=== PATIENT | female | born 1935 | race African-American/Black ===

== ENCOUNTER 2022-06-12 16:12 | Inpatient (IN) ==
[2022-06-12 20:16] LABS: Basophils # 0.1 10*3/uL (0.0-0.2); Basophils % 0.8 % (0.0-0.8); Eosinophils # 0.4 10*3/uL (0.0-0.87); Eosinophils % 4.5 % (0.00-10.9); Hematocrit 37.5 VOL% (35.7-47.0); Hemoglobin 11.9 GM/DL (12.0-16.0); Immature Granulocytes % 0.4 %; Immature Granulocytes Absolute 0.04 #; Lymphocytes # 1.6 10*3/uL (1.4-4.0); Lymphocytes % 16.4 % (21.3-54.2); Mean Corpuscular HGB Conc 31.7 GM/DL (32-36); Mean Corpuscular Volume 96.6 FL (87-102); Mean Platelet Volume 10.2 FL (9.6-12.0); Monocytes # 0.7 10*3/uL (0.11-0.8); Monocytes % 7.1 % (1.7-12.7); Neutrophils % 70.8 % (38.7-73.9); Platelet Count 296 T/CUMM (130-400); Red Blood Count 3.88 MC/CUMM (3.8-5.5); Red Cell Distribution Width 12.2 % (9.3-17.3); White Blood Count 9.8 T/CUMM (4-12)
[2022-06-12] MEDS ORDERED: VANCOMYCIN INJ 1,000 MG in SODIUM CHLORIDE 0.9% 250 ML IV STA ×2 (20:32→20:55)
[2022-06-12 20:35] LABS: Albumin 3.4 G/DL (3.4-5.0); Bilirubin,Total 0.4 MG/DL (0.20-1.00); Calcium 10.2 MG/DL (8.5-10.1); Osmolality,Calculated 277.8 MOS/KG (273-304); Total Protein 9.5 G/DL (6.4-8.2)
[2022-06-12] MEDS ORDERED: ONDANSETRON 4 MG/2 ML VIAL IV PRN (20:52)
[2022-06-12] MEDS ORDERED: DEXTROSE 50% 25 GM/50 ML VIAL IV PRN (20:52)
[2022-06-12] MEDS ORDERED: GLUCAGON 1 MG VIAL IM PRN ×2 (20:52)
[2022-06-12] MEDS ORDERED: SODIUM CHLORIDE 0.9% 1,000 ML IV SCH (21:00)
[2022-06-12] MEDS ORDERED: DEXTROSE 10% 250 ML BAG IV PRN (21:14)
[2022-06-12] MEDS: INSULIN REGULAR 100 UNIT/ML SUBCUT SCH (23:10)
[2022-06-13 05:55] LABS: Basophils # 0.1 10*3/uL (0.0-0.2); Basophils % 0.8 % (0.0-0.8); Eosinophils # 0.4 10*3/uL (0.0-0.87); Eosinophils % 5.6 % (0.00-10.9); Hematocrit 35.6 VOL% (35.7-47.0); Hemoglobin 11.3 GM/DL (12.0-16.0); Immature Granulocytes % 0.3 %; Immature Granulocytes Absolute 0.02 #; Lymphocytes # 1.4 10*3/uL (1.4-4.0); Lymphocytes % 18.4 % (21.3-54.2); Mean Corpuscular HGB Conc 31.7 GM/DL (32-36); Mean Corpuscular Volume 96.7 FL (87-102); Mean Platelet Volume 10.3 FL (9.6-12.0); Monocytes # 0.7 10*3/uL (0.11-0.8); Monocytes % 9.6 % (1.7-12.7); Neutrophils % 65.3 % (38.7-73.9); Platelet Count 329 T/CUMM (130-400); Red Blood Count 3.68 MC/CUMM (3.8-5.5); Red Cell Distribution Width 12.2 % (9.3-17.3); White Blood Count 7.5 T/CUMM (4-12)
[2022-06-13 06:09] LABS: Albumin 2.8 G/DL (3.4-5.0); Bilirubin,Total 0.6 MG/DL (0.20-1.00); Calcium 9.8 MG/DL (8.5-10.1); Osmolality,Calculated 284.1 MOS/KG (273-304); Potassium 3.8 MMOL/L (3.5-5.1); Total Protein 8.3 G/DL (6.4-8.2)
[2022-06-13 07:44] LABS: Total Protein (Chem) 8.5 G/DL (6.4-8.3)
[2022-06-13] MEDS: INSULIN REGULAR 100 UNIT/ML SUBCUT SCH ×4 (08:18→20:23)
[2022-06-13] MEDS: amLODIPine 2.5 MG TABLET PO SCH (08:54)
[2022-06-13] MEDS: PANTOPRAZOLE 40 MG TABLET PO SCH (08:54)
[2022-06-13] MEDS: hydroCHLOROthiazide 25 MG TABLET PO SCH (08:54)
[2022-06-13] MEDS: METOPROLOL SUCCINATE XL 100 MG TABLET PO SCH (08:54)
[2022-06-13] MEDS: lisinopriL 20 MG TABLET PO SCH (08:55)
[2022-06-13 10:06] LABS: Albumin (SPE) 4.2 G/DL (3.2-5.3); Albumin (SPE) Rel % 49.9 %; Alpha 1 (SPE) 0.3 G/DL (0.1-0.4); Alpha 1 (SPE) Rel % 3.5 %; Alpha 2 (SPE) 1.1 G/DL (0.4-1.0); Alpha 2 (SPE) Rel % 12.7 %; Beta (SPE) 0.8 G/DL (0.5-1.1); Beta (SPE) Rel % 9.9 %
[2022-06-13] MEDS ORDERED: LIDOCAINE 2% 5 ML VIAL ONE (13:02)
[2022-06-13] MEDS ORDERED: fentaNYL 100 MCG/2 ML VIAL ONE (13:02)
[2022-06-13] MEDS ORDERED: propofoL 200 MG/20 ML VIAL IV ONE (13:02)
[2022-06-13 13:31] LABS: Folate > 24.00 NG/ML (5.38-24.0); Vitamin B12 > 2000 PG/ML (211-911)
[2022-06-13 13:44] LABS: % Iron Saturation 25.1 % (18-50)
[2022-06-13] MEDS ORDERED: BUPIVACAINE MPF 0.25% 10 ML VIAL ONE (14:10)
[2022-06-13] MEDS ORDERED: SEVOFLURANE 1 UNIT/15 MINUTE INH ONE (14:31)
[2022-06-13] MEDS: SODIUM CHLORIDE 0.9% 1,000 ML IV SCH (15:41)
[2022-06-13] MEDS ORDERED: KETOROLAC 15 MG/1 ML VIAL IV PRN (16:12)
[2022-06-13] MEDS: HYDROmorphone 1 MG/1 ML SYRINGE IV PRN ×2 (16:27→21:36)
[2022-06-13] MEDS ORDERED: diphenhydrAMINE 50 MG/1 ML VIAL IV PRN (16:35)
[2022-06-13] MEDS ORDERED: VANCOMYCIN INJ 1,000 MG in SODIUM CHLORIDE 0.9% 250 ML IV SCH (17:00)
[2022-06-14] MEDS: HYDROmorphone 1 MG/1 ML SYRINGE IV PRN (03:12)
[2022-06-14 04:14] LABS: Basophils # 0.1 10*3/uL (0.0-0.2); Basophils % 0.6 % (0.0-0.8); Eosinophils # 0.3 10*3/uL (0.0-0.87); Eosinophils % 2.6 % (0.00-10.9); Hematocrit 35.8 VOL% (35.7-47.0); Hemoglobin 11.2 GM/DL (12.0-16.0); Immature Granulocytes % 0.5 %; Immature Granulocytes Absolute 0.05 #; Lymphocytes # 0.7 10*3/uL (1.4-4.0); Lymphocytes % 7.3 % (21.3-54.2); Mean Corpuscular HGB Conc 31.3 GM/DL (32-36); Mean Corpuscular Volume 97.5 FL (87-102); Mean Platelet Volume 10.3 FL (9.6-12.0); Monocytes # 0.6 10*3/uL (0.11-0.8); Monocytes % 6.2 % (1.7-12.7); Neutrophils % 82.8 % (38.7-73.9); Platelet Count 287 T/CUMM (130-400); Red Blood Count 3.67 MC/CUMM (3.8-5.5); Red Cell Distribution Width 12.1 % (9.3-17.3); White Blood Count 9.7 T/CUMM (4-12)
[2022-06-14 04:42] LABS: Calcium 9.1 MG/DL (8.5-10.1); Osmolality,Calculated 279.5 MOS/KG (273-304); Potassium 3.8 MMOL/L (3.5-5.1); Risk Ratio 3.07; VLDL Cholesterol 16.2 MG/DL
[2022-06-14] MEDS: INSULIN REGULAR 100 UNIT/ML SUBCUT SCH ×5 (07:12→21:05)
[2022-06-14] MEDS: hydroCHLOROthiazide 25 MG TABLET PO SCH (08:37)
[2022-06-14] MEDS: lisinopriL 20 MG TABLET PO SCH (08:37)
[2022-06-14] MEDS: amLODIPine 2.5 MG TABLET PO SCH (08:37)
[2022-06-14] MEDS: METOPROLOL SUCCINATE XL 100 MG TABLET PO SCH (08:37)
[2022-06-14] MEDS: PANTOPRAZOLE 40 MG TABLET PO SCH (08:37)
[2022-06-14] MEDS: SODIUM HYPOCHLORITE 0.25% IRRIG 473 ML BOTTLE TOP SCH (10:07)
[2022-06-14] MEDS ORDERED: MAGNESIUM SULF RIDER 2 GM/50 ML PREMIX IV ONE (10:30)
[2022-06-14] MEDS: SODIUM CHLORIDE 0.9% 1,000 ML IV SCH (12:00)
[2022-06-14] MEDS: CLINDAMYCIN 300 MG CAPSULE PO SCH (16:43)
[2022-06-14 16:56] LABS: Total Protein 24 Hr Ur Result 19 MG/24HR (0-149.1); Total Volume,Urine 100 ML (400-2000)
[2022-06-15 06:46] LABS: 24 Hr Protein (Bench) 19 MG/24HR (0-149.1)
[2022-06-15] MEDS: INSULIN REGULAR 100 UNIT/ML SUBCUT SCH ×4 (07:34→20:27)
[2022-06-15] MEDS ORDERED: LEVOFLOXACIN 750 MG TABLET PO SCH (08:00)
[2022-06-15] MEDS: glipiZIDE 10 MG TABLET PO SCH (08:01)
[2022-06-15] MEDS: amLODIPine 2.5 MG TABLET PO SCH (08:01)
[2022-06-15] MEDS: CLINDAMYCIN 300 MG CAPSULE PO SCH ×3 (08:02→16:58)
[2022-06-15] MEDS: RIVAROXABAN 20 MG TABLET PO SCH (08:02)
[2022-06-15] MEDS: hydroCHLOROthiazide 25 MG TABLET PO SCH (08:02)
[2022-06-15] MEDS: lisinopriL 20 MG TABLET PO SCH (08:02)
[2022-06-15] MEDS: METOPROLOL SUCCINATE XL 100 MG TABLET PO SCH (08:02)
[2022-06-15] MEDS: PANTOPRAZOLE 40 MG TABLET PO SCH (08:02)
[2022-06-15] MEDS: SODIUM HYPOCHLORITE 0.25% IRRIG 473 ML BOTTLE TOP SCH (08:13)
[2022-06-15] MEDS: CEFUROXIME 500 MG TABLET PO SCH ×2 (09:17→20:27)
[2022-06-15] MEDS: SODIUM CHLORIDE 0.9% 1,000 ML IV SCH (16:23)
[2022-06-16] MEDS: INSULIN REGULAR 100 UNIT/ML SUBCUT SCH ×4 (08:39→22:14)
[2022-06-16] MEDS: CLINDAMYCIN 300 MG CAPSULE PO SCH ×3 (08:54→18:00)
[2022-06-16] MEDS: glipiZIDE 10 MG TABLET PO SCH (08:54)
[2022-06-16] MEDS: PANTOPRAZOLE 40 MG TABLET PO SCH (08:54)
[2022-06-16] MEDS: RIVAROXABAN 20 MG TABLET PO SCH (08:54)
[2022-06-16] MEDS: LEVOFLOXACIN 500 MG TABLET PO SCH (08:54)
[2022-06-16] MEDS: hydroCHLOROthiazide 25 MG TABLET PO SCH (08:54)
[2022-06-16] MEDS: METOPROLOL SUCCINATE XL 100 MG TABLET PO SCH (08:54)
[2022-06-16] MEDS: SODIUM HYPOCHLORITE 0.25% IRRIG 473 ML BOTTLE TOP SCH (08:55)
[2022-06-16] MEDS: lisinopriL 20 MG TABLET PO SCH (08:55)
[2022-06-16] MEDS: amLODIPine 2.5 MG TABLET PO SCH (08:55)
[2022-06-17 06:09] LABS: Basophils % 0.4 % (0.0-0.8); Eosinophils # 0.2 10*3/uL (0.0-0.87); Eosinophils % 2.1 % (0.00-10.9); Hematocrit 33.9 VOL% (35.7-47.0); Hemoglobin 11.1 GM/DL (12.0-16.0); Immature Granulocytes % 0.4 %; Immature Granulocytes Absolute 0.03 #; Lymphocytes # 1.1 10*3/uL (1.4-4.0); Lymphocytes % 12.5 % (21.3-54.2); Mean Corpuscular HGB Conc 32.7 GM/DL (32-36); Mean Corpuscular Volume 93.9 FL (87-102); Mean Platelet Volume 10.4 FL (9.6-12.0); Monocytes # 0.8 10*3/uL (0.11-0.8); Monocytes % 9.1 % (1.7-12.7); Neutrophils % 75.5 % (38.7-73.9); Platelet Count 269 T/CUMM (130-400); Red Blood Count 3.61 MC/CUMM (3.8-5.5); Red Cell Distribution Width 12.3 % (9.3-17.3); White Blood Count 8.5 T/CUMM (4-12)
[2022-06-17 06:19] LABS: Calcium 9.6 MG/DL (8.5-10.1); Osmolality,Calculated 271.8 MOS/KG (273-304); Potassium 3.3 MMOL/L (3.5-5.1)
[2022-06-17] MEDS: INSULIN REGULAR 100 UNIT/ML SUBCUT SCH ×3 (07:22→16:51)
[2022-06-17] MEDS: lisinopriL 20 MG TABLET PO SCH (08:28)
[2022-06-17] MEDS: glipiZIDE 10 MG TABLET PO SCH (08:28)
[2022-06-17] MEDS: hydroCHLOROthiazide 25 MG TABLET PO SCH (08:28)
[2022-06-17] MEDS: PANTOPRAZOLE 40 MG TABLET PO SCH (08:28)
[2022-06-17] MEDS: LEVOFLOXACIN 500 MG TABLET PO SCH (08:28)
[2022-06-17] MEDS: CLINDAMYCIN 300 MG CAPSULE PO SCH ×3 (08:29→17:20)
[2022-06-17] MEDS: SODIUM HYPOCHLORITE 0.25% IRRIG 473 ML BOTTLE TOP SCH (08:29)
[2022-06-17] MEDS: METOPROLOL SUCCINATE XL 100 MG TABLET PO SCH (08:29)
[2022-06-17] MEDS: RIVAROXABAN 20 MG TABLET PO SCH (08:29)
[2022-06-17] MEDS: amLODIPine 2.5 MG TABLET PO SCH (08:30)
[2022-06-17] MEDS ORDERED: POTASSIUM CHLORIDE 20 MEQ TABLET PO ONE (10:37)
[2022-06-17] MEDS: ACETAMINOPHEN 325 MG TABLET PO PRN (17:21)
[2022-06-18] MEDS: INSULIN REGULAR 100 UNIT/ML SUBCUT SCH ×5 (00:43→20:42)
[2022-06-18] MEDS: RIVAROXABAN 20 MG TABLET PO SCH (09:30)
[2022-06-18] MEDS: CLINDAMYCIN 300 MG CAPSULE PO SCH ×3 (09:30→17:36)
[2022-06-18] MEDS: glipiZIDE 10 MG TABLET PO SCH (09:30)
[2022-06-18] MEDS: LEVOFLOXACIN 500 MG TABLET PO SCH (09:30)
[2022-06-18] MEDS: SODIUM HYPOCHLORITE 0.25% IRRIG 473 ML BOTTLE TOP SCH (09:53)
[2022-06-18] MEDS: PANTOPRAZOLE 40 MG TABLET PO SCH (09:53)
[2022-06-18] MEDS: amLODIPine 2.5 MG TABLET PO SCH (09:53)
[2022-06-18] MEDS: METOPROLOL SUCCINATE XL 100 MG TABLET PO SCH (09:53)
[2022-06-18] MEDS: lisinopriL 20 MG TABLET PO SCH (09:53)
[2022-06-18] MEDS: hydroCHLOROthiazide 25 MG TABLET PO SCH (09:53)
[2022-06-19 06:16] LABS: Basophils # 0.1 10*3/uL (0.0-0.2); Basophils % 0.6 % (0.0-0.8); Eosinophils # 0.3 10*3/uL (0.0-0.87); Eosinophils % 3.2 % (0.00-10.9); Hematocrit 36.6 VOL% (35.7-47.0); Hemoglobin 11.9 GM/DL (12.0-16.0); Immature Granulocytes % 0.4 %; Immature Granulocytes Absolute 0.04 #; Lymphocytes # 1.5 10*3/uL (1.4-4.0); Mean Corpuscular HGB Conc 32.5 GM/DL (32-36); Mean Corpuscular Volume 93.1 FL (87-102); Mean Platelet Volume 10.7 FL (9.6-12.0); Monocytes # 0.9 10*3/uL (0.11-0.8); Monocytes % 8.9 % (1.7-12.7); Neutrophils % 71.9 % (38.7-73.9); Platelet Count 307 T/CUMM (130-400); Red Blood Count 3.93 MC/CUMM (3.8-5.5); Red Cell Distribution Width 12.6 % (9.3-17.3); White Blood Count 9.8 T/CUMM (4-12)
[2022-06-19 06:38] LABS: Calcium 9.5 MG/DL (8.5-10.1); Osmolality,Calculated 269.2 MOS/KG (273-304)
[2022-06-19] MEDS: INSULIN REGULAR 100 UNIT/ML SUBCUT SCH ×4 (07:17→21:13)
[2022-06-19] MEDS: hydroCHLOROthiazide 25 MG TABLET PO SCH (08:15)
[2022-06-19] MEDS: glipiZIDE 10 MG TABLET PO SCH (08:15)
[2022-06-19] MEDS: amLODIPine 2.5 MG TABLET PO SCH (08:15)
[2022-06-19] MEDS: lisinopriL 20 MG TABLET PO SCH (08:15)
[2022-06-19] MEDS: METOPROLOL SUCCINATE XL 100 MG TABLET PO SCH (08:15)
[2022-06-19] MEDS: CLINDAMYCIN 300 MG CAPSULE PO SCH (08:15)
[2022-06-19] MEDS: LEVOFLOXACIN 500 MG TABLET PO SCH (08:16)
[2022-06-19] MEDS: PANTOPRAZOLE 40 MG TABLET PO SCH (08:16)
[2022-06-19] MEDS: ACETAMINOPHEN 325 MG TABLET PO PRN ×2 (08:16→20:07)
[2022-06-19] MEDS: SODIUM HYPOCHLORITE 0.25% IRRIG 473 ML BOTTLE TOP SCH (08:18)
[2022-06-19] MEDS: RIVAROXABAN 20 MG TABLET PO SCH (08:20)
[2022-06-19] MEDS ORDERED: diphenhydrAMINE CAP 25 MG CAPSULE PO ONE (09:58)
[2022-06-19] MEDS ORDERED: SODIUM CHLORIDE 0.45% 1,000 ML IV SCH (10:00)
[2022-06-19] MEDS ORDERED: HEPARIN/NACL 0.9% 2 UNITS/ML 3,000 UNIT/1,500 ML BAG IV ONE (10:42)
[2022-06-19] MEDS ORDERED: ASPIRIN EC 81 MG TABLET PO ONE (10:45)
[2022-06-19] MEDS ORDERED: fentaNYL 100 MCG/2 ML VIAL ONE (11:30)
[2022-06-19] MEDS ORDERED: MIDAZOLAM 2 MG/2 ML VIAL ONE (11:30)
[2022-06-19] MEDS ORDERED: HEPARIN 5,000 UNIT/1 ML VIAL ONE (12:08)
[2022-06-19] MEDS ORDERED: hydrALAZINE 20 MG/1 ML VIAL ONE (12:31)
[2022-06-19] MEDS ORDERED: NITROGLYCERIN DRIP 50 MG/250 ML BOTTLE IV ONE (13:28)
[2022-06-20 06:25] LABS: Basophils # 0.1 10*3/uL (0.0-0.2); Basophils % 0.6 % (0.0-0.8); Eosinophils # 0.2 10*3/uL (0.0-0.87); Eosinophils % 1.3 % (0.00-10.9); Hematocrit 33.8 VOL% (35.7-47.0); Hemoglobin 10.9 GM/DL (12.0-16.0); Immature Granulocytes % 1.6 %; Immature Granulocytes Absolute 0.18 #; Lymphocytes # 1.2 10*3/uL (1.4-4.0); Lymphocytes % 10.6 % (21.3-54.2); Mean Corpuscular HGB Conc 32.2 GM/DL (32-36); Mean Corpuscular Volume 94.7 FL (87-102); Monocytes # 1.2 10*3/uL (0.11-0.8); Monocytes % 10.4 % (1.7-12.7); Neutrophils % 75.5 % (38.7-73.9); Platelet Count 286 T/CUMM (130-400); Red Blood Count 3.57 MC/CUMM (3.8-5.5); Red Cell Distribution Width 12.8 % (9.3-17.3); White Blood Count 11.3 T/CUMM (4-12)
[2022-06-20 06:39] LABS: Calcium 9.7 MG/DL (8.5-10.1); Osmolality,Calculated 268.2 MOS/KG (273-304); Potassium 4.2 MMOL/L (3.5-5.1)
[2022-06-20] MEDS: glipiZIDE 10 MG TABLET PO SCH (08:36)
[2022-06-20] MEDS: LEVOFLOXACIN 500 MG TABLET PO SCH (08:37)
[2022-06-20] MEDS: PANTOPRAZOLE 40 MG TABLET PO SCH (08:37)
[2022-06-20] MEDS: SODIUM HYPOCHLORITE 0.25% IRRIG 473 ML BOTTLE TOP SCH (08:40)
[2022-06-20] MEDS: hydroCHLOROthiazide 25 MG TABLET PO SCH (08:41)
[2022-06-20] MEDS: lisinopriL 20 MG TABLET PO SCH (08:41)
[2022-06-20] MEDS: amLODIPine 2.5 MG TABLET PO SCH (08:41)
[2022-06-20] MEDS: METOPROLOL SUCCINATE XL 100 MG TABLET PO SCH ×2 (08:41→11:16)
[2022-06-20] MEDS: RIVAROXABAN 20 MG TABLET PO SCH (09:12)
[2022-06-20] MEDS: INSULIN REGULAR 100 UNIT/ML SUBCUT SCH ×2 (09:57→11:16)
[2022-06-20 11:18] VITALS: BP 123/65
== END 2022-06-20 15:25 | disposition home health service (06) | DRG 240 ==
LOC: N.ED 16:12 → N.3E 20:52
PROVIDERS: ADMIT Internal Medicine; ATTEND Internal Medicine